=== PATIENT | female | born 1955 | race Caucasian/White ===

== ENCOUNTER → 2018-06-10 | Outpatient (CLI) | payer OTHER ==
[~2018-06-10] VITALS: Ht 157.5 cm; Wt 71.7 kg
[~2018-06-10] MED LIST: BISOPROLOL FUMAR5 M1 PO; GLUCOTROL5 MG PO; JANUVIA100 MG PO; LISINOPRIL20 MG PO; METFORMIN HCL500 MG PO; PRAVASTATIN SOD80 MG PO; VITAMIN D1000 UNI1 PO; ZETIA10 MG PO
--- NOTE | ~2018-06-10 | P ---
[facility] [place] [address] PROCEDURE REPORT Name: JEANNE Room #: NICHOLAS SANTIZO Brady#: [id number] Admission: 06/10/18 Attend Phys: Bigg Jones Discharge: Date of : 55 Report #: [id number] THIS REPORT FOR: //name// CC: Bigg Oreilly MD DATE OF SERVICE: 06/10/2018 PROCEDURE PERFORMED: Colonoscopy. HISTORY OF PRESENT ILLNESS: The patient is a 63-year-old female who presents today for routine screening colonoscopy. She denies any symptoms. No previous history of endoscopy, no family history of colon cancer. DESCRIPTION OF PROCEDURE: The risks and benefits of the procedure were explained to the patient, those risks including but not limited to bleeding, perforation and the risk of sedation. She understood these risks and gave informed consent. Sedation was given using propofol per anesthesia. Next, a digital rectal exam was initially performed, which was normal. Next, using a standard Olympus colonoscope, the scope was placed in the patient's anus and advanced under direct vision to the cecum. The overall prep was excellent. The cecum and ileocecal valve were normal in appearance. The ascending, transverse, descending and sigmoid colon were all normal. The rectal mucosa was normal. On retroflexion, no abnormalities were noted. The scope was then withdrawn and the procedure terminated. The patient tolerated the procedure well. IMPRESSION: Normal colonoscopy. RECOMMENDATIONS: Repeat colonoscopy in 10 years. Thank you for allowing me to participate in her care. By: [id number] Bigg Christina MD /nt
== END | disposition home or self-care (01) ==
LOC: GI 07:49
DX: Z12.11 Encounter for screening for malignant neoplasm of colon (principal); I10 Essential (primary) hypertension; E78.5 Hyperlipidemia, unspecified; E11.9 Type 2 diabetes mellitus without complications; Z91.040 Latex allergy status; Z79.899 Other long term (current) drug therapy; Z79.84 Long term (current) use of oral hypoglycemic drugs; Z98.890 Other specified postprocedural states
CPT/HCPCS: 62110; 62900

== ENCOUNTER → 2019-07-18 | Outpatient (CLI) | payer OTHER | LOC: RAD 09:14 | DX: S40.022A Contusion of left upper arm, initial encounter (principal); X58.XXXA Exposure to other specified factors, initial encounter; Y93.89 Activity, other specified; Y92.89 Other specified places as the place of occurrence of the external cause; Y99.8 Other external cause status ==